=== PATIENT | male | born 1945 | race African-American/Black ===

== ENCOUNTER 2018-09-07 07:23 | Observation (INO) ==
[2018-09-07 08:07] LABS: Basophils % 0.6 % (0.0-0.8); Eosinophils # 0.1 10*3/uL (0.0-0.87); Eosinophils % 2.9 % (0.00-10.9); Hematocrit 40.8 VOL% (42.0-52.0); Hemoglobin 13.9 GM/DL (14.0-18.0); Immature Granulocytes % 0.6 %; Immature Granulocytes Absolute 0.03 #; Lymphocytes # 1.7 10*3/uL (1.4-4.0); Lymphocytes % 34.2 % (21.2-54.2); Mean Corpuscular HGB Conc 34.1 GM/DL (32-36); Mean Corpuscular Volume 88.9 FL (87-102); Mean Platelet Volume 11.6 FL (9.6-12.0); Monocytes % 10.4 % (1.7-12.7); Neutrophils % 51.3 % (38.7-73.9); Platelet Count 146 T/CUMM (130-400); Red Blood Count 4.59 MC/CUMM (3.8-5.5); Red Cell Distribution Width 14.3 % (9.3-17.3); White Blood Count 4.8 T/CUMM (4-12)
[2018-09-07 08:18] LABS: INR 1.1; PT Patient Result 11.9 SECS; Partial Thromboplastin Time 27.9 SECS (0-40)
[2018-09-07 08:39] LABS: Albumin 3.4 G/DL (3.4-5.0); Bilirubin,Total 0.4 MG/DL (0.2-1.0); Calcium 8.8 MG/DL (8.5-10.1); Osmolality,Calculated 284.7 MOS/KG (273-304); Total Protein 7.7 G/DL (6.4-8.3)
[2018-09-07 08:44] LABS: ABG Base Excess 0.4 MMOL/L (-2.5-2.5); ABG HCO3 24.8 MMOL/L (20-26); ABG Oxygen Saturation 98.2 % (95-100); ABG PCO2 33.5 MM HG (35-48); ABG PH 7.456 (7.35-7.45); ABG PO2 99.2 MM HG (80-95); ABG TCO2 20.4 MMOL/L (23-27)
[2018-09-07] MEDS ORDERED: PROMETHAZINE 25 MG/1 ML VIAL IM PRN (10:05)
[2018-09-07] MEDS ORDERED: ONDANSETRON 4 MG/2 ML VIAL IV PRN (10:05)
[2018-09-07] MEDS ORDERED: MORPHINE 4 MG/1 ML VIAL IV PRN (10:05)
[2018-09-07] MEDS ORDERED: GLUCAGON 1 MG VIAL IM PRN (10:30)
[2018-09-07] MEDS ORDERED: DEXTROSE 50% 25 GM/50 ML VIAL IV PRN (10:30)
[2018-09-07] MEDS: PANTOPRAZOLE 40 MG TABLET PO SCH (11:07)
[2018-09-07 11:26] LABS: Apearance,Urine CLEAR (Clear); Bilirubin,Urine Negative (Negative); Blood, Urine Negative (Negative); Glucose,Urine (UA) >=500 mg/dL (Negative); Ketones,Urine Negative (Negative); Mucus,Urine Occasional /LPF (Occasional); Nitrite,Urine Negative (Negative); Protein,Urine 100 MG/DL; RBC,Urine <1 /HPF (0-4); Sperm,Urine Occasional /HPF (Negative); Urine Color Straw (Yellow); Urine Urobilinogen < 2.0 EU/DL (0.2-1.0); WBC,Urine <1 /HPF (0-6)
[2018-09-07] MEDS: ALBUTEROL/IPRATROPIUM 3 ML NEB RESP TX SCH ×2 (12:04→19:46)
[2018-09-07] MEDS ORDERED: hydrALAZINE 20 MG/1 ML VIAL IV PRN (12:27)
[2018-09-07] MEDS: INSULIN REGULAR 100 UNIT/ML SUBCUT SCH ×3 (13:04→21:07)
[2018-09-07] MEDS: BUDESONIDE/FORMOTEROL 160-4.5 INHALER 6 GM INH SCH ×2 (13:06→21:08)
[2018-09-07] MEDS ORDERED: SIMVASTATIN 10 MG TABLET PO SCH (21:00)
[2018-09-08] MEDS: ALBUTEROL/IPRATROPIUM 3 ML NEB RESP TX SCH ×3 (00:32→14:38)
[2018-09-08 05:01] LABS: Basophils % 0.3 % (0.0-0.8); Eosinophils # 0.1 10*3/uL (0.0-0.87); Eosinophils % 1.1 % (0.00-10.9); Hematocrit 37.3 VOL% (42.0-52.0); Hemoglobin 12.6 GM/DL (14.0-18.0); Immature Granulocytes % 0.8 %; Immature Granulocytes Absolute 0.05 #; Lymphocytes # 1.1 10*3/uL (1.4-4.0); Lymphocytes % 17.9 % (21.2-54.2); Mean Corpuscular HGB Conc 33.8 GM/DL (32-36); Mean Corpuscular Volume 89.4 FL (87-102); Mean Platelet Volume 12.1 FL (9.6-12.0); Monocytes % 9.8 % (1.7-12.7); Neutrophils % 70.1 % (38.7-73.9); Platelet Count 145 T/CUMM (130-400); Red Blood Count 4.17 MC/CUMM (3.8-5.5); Red Cell Distribution Width 14.3 % (9.3-17.3); White Blood Count 6.1 T/CUMM (4-12)
[2018-09-08 05:29] LABS: Calcium 8.4 MG/DL (8.5-10.1); Risk Ratio 2.64; VLDL CHOLESTEROL 30.6 MG/DL
[2018-09-08] MEDS: PANTOPRAZOLE 40 MG TABLET PO SCH (08:41)
[2018-09-08] MEDS: INSULIN REGULAR 100 UNIT/ML SUBCUT SCH ×2 (08:45→12:53)
[2018-09-08] MEDS: BUDESONIDE/FORMOTEROL 160-4.5 INHALER 6 GM INH SCH (08:46)
[2018-09-08] MEDS ORDERED: ASPIRIN EC 81 MG TABLET PO SCH (09:00)
[2018-09-08] MEDS ORDERED: amLODIPine 10 MG TABLET PO SCH (09:00)
[2018-09-08] MEDS ORDERED: POTASSIUM CHLORIDE 10 MEQ TABLET PO SCH (09:00)
[2018-09-08] MEDS ORDERED: predniSONE 5 MG TABLET PO SCH (09:00)
[2018-09-08] MEDS ORDERED: amLODIPine 5 MG TABLET PO SCH (09:00)
[2018-09-08] MEDS ORDERED: INSULIN ASPART PROTAMINE/ASPART 70/30 100 UNIT/ML SUBCUT SCH ×2 (09:00)
[2018-09-08 12:42] VITALS: BP 144/80
== END 2018-09-08 15:35 | disposition home or self-care (01) ==
LOC: N.ED 07:23 → N.EDINP 07:23 → N.TELEN 11:06
PROVIDERS: ADMIT Internal Medicine; ATTEND Internal Medicine

== ENCOUNTER 2021-08-09 21:37 | Observation (INO) ==
[2021-08-09 23:25] LABS: Basophils # 0.1 10*3/uL (0.0-0.2); Basophils % 1.2 % (0.0-0.8); Eosinophils # 0.1 10*3/uL (0.0-0.87); Eosinophils % 2.6 % (0.00-10.9); Hematocrit 36.4 VOL% (42.0-52.0); Hemoglobin 12.2 GM/DL (14.0-18.0); Immature Granulocytes % 0.5 %; Immature Granulocytes Absolute 0.02 #; Lymphocytes # 1.3 10*3/uL (1.4-4.0); Lymphocytes % 31.6 % (21.2-54.2); Mean Corpuscular HGB Conc 33.5 GM/DL (32-36); Mean Corpuscular Volume 87.7 FL (87-102); Mean Platelet Volume 11.6 FL (9.6-12.0); Monocytes # 0.9 10*3/uL (0.11-0.8); Monocytes % 21.1 % (1.7-12.7); Platelet Count 181 T/CUMM (130-400); Red Blood Count 4.15 MC/CUMM (3.8-5.5); Red Cell Distribution Width 15.6 % (9.3-17.3); White Blood Count 4.2 T/CUMM (4-12)
[2021-08-09 23:47] LABS: Platelet Estimate Adequate
[2021-08-10 00:24] LABS: Alanine Aminotransferase 16 U/L (16-61); Albumin 3.6 G/DL (3.4-5.0); Alkaline Phosphatase 78 U/L (45-117); Aspartate Amino Transferase 18 U/L (0-37); Bilirubin,Total < 0.39 MG/DL (0.20-1.00); Blood Urea Nitrogen 31 MG/DL (7-18); Calcium 8.7 MG/DL (8.5-10.1); Carbon Dioxide 20 MMOL/L (21-32); Chloride 106 MMOL/L (98-107); Estimated Glom Filtration Rate 23 ML/MIN; Glucose 209 MG/DL (74-106); Potassium 4.4 MMOL/L (3.5-5.1); Sodium 136 MMOL/L (136-145); Total Protein 7.9 G/DL (6.4-8.2); Uric Acid 5.6 MG/DL (3.5-7.2)
[2021-08-10] MEDS ORDERED: hydrALAZINE 20 MG/1 ML VIAL ONE (00:32)
[2021-08-10] MEDS ORDERED: ONDANSETRON 4 MG/2 ML VIAL IV ONE (00:36)
[2021-08-10] MEDS ORDERED: MORPHINE 2 MG/1 ML SYRINGE IV STA (00:36)
[2021-08-10] MEDS ORDERED: hydrALAZINE 20 MG/1 ML VIAL IV STA (00:37)
[2021-08-10] MEDS ORDERED: ASPIRIN 325 MG TABLET PO STA (01:23)
[2021-08-10] MEDS ORDERED: NITROGLYCERIN SL 0.4 MG TABLET SL STA (01:23)
[2021-08-10] MEDS ORDERED: MORPHINE 2 MG/1 ML SYRINGE IV PRN (02:36)
[2021-08-10] MEDS ORDERED: ONDANSETRON 4 MG/2 ML VIAL IV PRN (02:36)
[2021-08-10] MEDS ORDERED: GLUCAGON 1 MG VIAL IM PRN (02:36)
[2021-08-10] MEDS ORDERED: hydrALAZINE 20 MG/1 ML VIAL IV PRN (02:36)
[2021-08-10] MEDS ORDERED: ACETAMINOPHEN 325 MG TABLET PO PRN (02:36)
[2021-08-10] MEDS ORDERED: DEXTROSE 10% 250 ML BAG IV PRN (02:44)
[2021-08-10 03:29] LABS: Basophils % 0.5 % (0.0-0.8); Eosinophils # 0.1 10*3/uL (0.0-0.87); Eosinophils % 2.3 % (0.00-10.9); Hematocrit 32.9 VOL% (42.0-52.0); Hemoglobin 11.1 GM/DL (14.0-18.0); Immature Granulocytes % 0.3 %; Immature Granulocytes Absolute 0.01 #; Lymphocytes % 26.3 % (21.2-54.2); Mean Corpuscular HGB Conc 33.7 GM/DL (32-36); Mean Corpuscular Volume 86.6 FL (87-102); Mean Platelet Volume 11.1 FL (9.6-12.0); Monocytes # 0.7 10*3/uL (0.11-0.8); Monocytes % 16.9 % (1.7-12.7); Neutrophils % 53.7 % (38.7-73.9); Platelet Count 161 T/CUMM (130-400); Red Cell Distribution Width 15.3 % (9.3-17.3)
[2021-08-10 03:51] LABS: Platelet Estimate Normal
[2021-08-10 03:54] LABS: Osmolality,Calculated 287.7 MOS/KG (273-304); Potassium 3.8 MMOL/L (3.5-5.1); Risk Ratio 2.73
[2021-08-10] MEDS ORDERED: LORazepam 1 MG TABLET PO PRN (11:08)
[2021-08-10] MEDS: INSULIN LISPRO 100 UNIT/ML SUBCUT SCH ×4 (11:39→21:54)
[2021-08-10] MEDS: amLODIPine 10 MG TABLET PO SCH (14:26)
[2021-08-10] MEDS: FUROSEMIDE 40 MG TABLET PO SCH (14:26)
[2021-08-10] MEDS: PANTOPRAZOLE 40 MG TABLET PO SCH (14:27)
[2021-08-10] MEDS: ENOXAPARIN 40 MG/0.4 ML SYRINGE SUBCUT SCH (14:27)
[2021-08-10] MEDS ORDERED: SIMVASTATIN 10 MG TABLET PO SCH (21:00)
[2021-08-11] MEDS: PANTOPRAZOLE 40 MG TABLET PO SCH (08:42)
[2021-08-11] MEDS: ENOXAPARIN 40 MG/0.4 ML SYRINGE SUBCUT SCH (08:42)
[2021-08-11] MEDS: amLODIPine 10 MG TABLET PO SCH (08:42)
[2021-08-11] MEDS: INSULIN LISPRO 100 UNIT/ML SUBCUT SCH ×2 (08:42→12:25)
[2021-08-11] MEDS: FUROSEMIDE 40 MG TABLET PO SCH (08:43)
[2021-08-11] MEDS ORDERED: ASPIRIN EC 325 MG TABLET PO SCH (09:00)
[2021-08-11 16:04] VITALS: BP 154/96
== END 2021-08-11 16:30 | disposition home health service (06) ==
LOC: N.EDINP 21:37 → N.ED 21:37 → SUATTDRO 08-10 02:36 → N.EDINP 08-10 03:31 → N.5E 08-10 04:10
PROVIDERS: ADMIT Internal Medicine; ATTEND Internal Medicine